=== PATIENT | female | born 1980 | race Two or more races ===

== ENCOUNTER 2020-11-08 02:07 | Emergency (ER) | payer OTHER ==
[~2020-11-08] VITALS: Ht 167.6 cm; Wt 75.0 kg
[2020-11-08] MEDS ORDERED: LIDOCAINE 1% 20 ML VIAL IARTIC ONE (02:45)
[2020-11-08] MEDS ORDERED: LORazepam 2 MG TABLET PO ONE (04:00)
[2020-11-08] MEDS ORDERED: KETAMINE HCL 50 MG/ML 10 ML VIAL IVP ONE (04:45)
[2020-11-08] MEDS ORDERED: ROCURONIUM BROMIDE 10 MG/ML 5 ML VIAL ONE (05:23)
[2020-11-08 05:50] LABS: COVID AG,FIA SOURCE NASOPHARYNGEAL
[2020-11-08 07:31] VITALS: BP 127/66
== END 2020-11-08 07:32 | disposition home or self-care (01) ==
LOC: EMS 02:09
DX: S43.015A Anterior dislocation of left humerus, initial encounter (principal); F17.200 Nicotine dependence, unspecified, uncomplicated; Z20.822 Contact with and (suspected) exposure to COVID-19; W22.8XXA Striking against or struck by other objects, initial encounter; Y93.31 Activity, mountain climbing, rock climbing and wall climbing; Y92.89 Other specified places as the place of occurrence of the external cause; Y99.8 Other external cause status
CPT/HCPCS: 23650; 73030; 87426; 99152; 99153; 99285; J3490 ×2